=== PATIENT | male | born 1970 | race Native Hawaiian/Other Pacific Islander ===

== ENCOUNTER → 2016-04-04 | Outpatient (CLI) | payer BC ==
[~2016-04-04] MED LIST: ALBUPOW26 XX; ASPI81 PO
--- NOTE | 2016-04-05 09:41 | RSPPFT ---
DATE OF PROCEDURE: 04/04/16 COMMENTS: Spirometry with FVC of 5.1 predicted 5.4, FEV1 of 4.3 predicted 4.4, FEV1/FVC ratio 84% predicted 81%. IMPRESSION: On the basis of the above, patient has flow values within the predicted range.
== END ==
LOC: HRSP 09:13
PROVIDERS: ATTEND Internal Medicine Pulmonary Disease
DX: J45.909 Unspecified asthma, uncomplicated (principal)
CPT/HCPCS: 94060